=== PATIENT | male | born 1950 | race Caucasian/White ===

== ENCOUNTER 2021-03-09 13:18 | Outpatient (CLI) | payer MEDICARE, BC | END 2021-03-09 13:19 | disposition home or self-care (01) | LOC: CSHCT 13:18 | PROVIDERS: ATTEND Internal Medicine Gastroenterology | DX: R10.33 Periumbilical pain (principal); N32.9 Bladder disorder, unspecified; K76.89 Other specified diseases of liver | CPT/HCPCS: 74177; 82565 ==

== ENCOUNTER 2024-11-29 14:54 | Outpatient (CLI) | payer MEDICARE | END 2024-11-29 14:55 | disposition home or self-care (01) | LOC: CSHWCC 14:54 | PROVIDERS: ATTEND Nurse Practitioner Family | DX: I87.312 Chronic venous hypertension (idiopathic) with ulcer of left lower extremity (principal); L97.822 Non-pressure chronic ulcer of other part of left lower leg with fat layer exposed; G90.09 Other idiopathic peripheral autonomic neuropathy; M06.9 Rheumatoid arthritis, unspecified | CPT/HCPCS: 11042 ==

== ENCOUNTER 2024-12-06 11:31 | Outpatient (CLI) | payer MEDICARE | END 2024-12-06 11:32 | disposition home or self-care (01) | LOC: CSHWCC 11:31 | PROVIDERS: ATTEND Nurse Practitioner Family | DX: I87.312 Chronic venous hypertension (idiopathic) with ulcer of left lower extremity (principal); L97.822 Non-pressure chronic ulcer of other part of left lower leg with fat layer exposed; G90.09 Other idiopathic peripheral autonomic neuropathy; M06.9 Rheumatoid arthritis, unspecified | CPT/HCPCS: 11042 ==

== ENCOUNTER 2024-12-13 13:38 | Outpatient (CLI) | payer MEDICARE | END 2024-12-13 13:39 | disposition home or self-care (01) | LOC: CSHWCC 13:38 | PROVIDERS: ATTEND Nurse Practitioner Family | DX: I87.312 Chronic venous hypertension (idiopathic) with ulcer of left lower extremity (principal); L97.822 Non-pressure chronic ulcer of other part of left lower leg with fat layer exposed; G90.09 Other idiopathic peripheral autonomic neuropathy; M06.9 Rheumatoid arthritis, unspecified | CPT/HCPCS: 99213; G0463 ==